=== PATIENT | male | born 1990 | race American Indian/Alaskan Native ===

== ENCOUNTER 2017-09-26 16:46 | Emergency (ER) | payer SELFPAY ==
[2017-09-26 16:50] VITALS: RESP 18; TEMP 98.2
[2017-09-26] MEDS ORDERED: Lidocaine 1%/Epinephrine 1:100000 30 ml vial IJ STA (17:02)
--- NOTE | 2017-09-26 17:02 | C.PDOC ---
History Of Present Illness 27M c/o abscess on buttock for 3 days. says he had similar problem last year but it drained without any medical treatment. denies pmh. denies f/c, n/v. Time Seen by Provider: 09/26/17 16:56 Chief Complaint (Nursing): Abnormal Skin Integrity Past Medical History Vital Signs: Last Vital Signs Temp 98.2 F 09/26/17 16:49 Pulse 78 09/26/17 18:18 Resp 18 09/26/17 18:18 BP 134/82 09/26/17 18:18 Pulse Ox 98 09/26/17 18:18 Family History: States: Other Other Family History: nc - Social History Hx Alcohol Use: No Hx Substance Use: No - Immunization History Hx Tetanus Toxoid Vaccination: Yes Hx Influenza Vaccination: No Hx Pneumococcal Vaccination: No Review Of Systems Constitutional: Negative for: Fever, Chills, Malaise Cardiovascular: Negative for: Chest Pain Respiratory: Negative for: Shortness of Breath Gastrointestinal: Negative for: Nausea, Vomiting, Abdominal Pain Neurological: Negative for: Weakness, Numbness, Headache Physical Exam - Physical Exam Appears: Well, Non-toxic, No Acute Distress Skin: Warm, Dry Cardiovascular: Rhythm Regular Respiratory: No Decreased Breath Sounds, No Accessory Muscle Use Male Genital: Other (there is an abscess of the left gluteal cleft, approx 10cm of induration with central fluctuance) ED Course And Treatment O2 Sat by Pulse Oximetry: 99 - Incision & Drainage Of Abscess Anesthesia: Lidocaine 1%, With Epi Procedure: Incised W/Scalpel Blade#: (11), Probed To Break Up Loculations ( large amt purulent drainage) Medical Decision Making Medical Decision Making: rx bactrim DS disc w pt plan for wound care, follow up, and RTR Disposition - Disposition Referrals: [facility] [Outside] Disposition: HOME/ ROUTINE Disposition Time: 18:09 Condition: GOOD Additional Instructions: Please follow up with a primary doctor. Keep wound area clean. You may continue to experience some drainage from the wound for a couple days. Return to the ER for any worsening symptoms, fever, or for any other concerns. Prescriptions: Hydrocodone/Acetaminophen [[place] 325 mg-5 mg] 1 - 2 tab PO Q6H PRN #6 tab PRN Reason: Pain, Severe (8-10) Naproxen [Naprosyn] 500 mg PO Q12H PRN #10 tablet PRN Reason: Pain, Moderate (4-7) Sulfamethoxazole/Trimethoprim [Bactrim DS 800 mg-160 mg] 2 tab PO BID #20 tab Instructions: Abscess Incision and Drainage (ED) Forms: General Discharge Instructions, [facility] (Persian) - Clinical Impression Clinical Impression: Abscess
[2017-09-26] MEDS ORDERED: Lidocaine 2% w Epi 1:100,000 Inj IJ ONE (17:04)
[2017-09-26] MEDS ORDERED: Morphine 4 MG/ML VIAL ONE (17:06)
[2017-09-26 18:19] VITALS: BP 134/82; PULSE 78
[2017-09-26 18:45] VITALS: O2SAT 99
== END 2017-09-26 18:19 | disposition home or self-care (01) ==
LOC: C.ER 16:46
DX: L02.31 Cutaneous abscess of buttock (principal)
CPT/HCPCS: 10060; 96372; 99283; J2270